=== PATIENT | female | born 1960 | race Caucasian/White ===

== ENCOUNTER 2020-11-29 06:38 | Day surgery (SDC) | payer BC, MEDICAID ==
[2020-11-22 12:00] LABS: ALBUMIN/GLOBULIN RATIO 1.1 (1.1-1.5); ALKALINE PHOSPHATASE 96 IU/L (46-116); BLOOD UREA NITROGEN 17 MG/DL (7-18); BUN/CREATININE RATIO 17.3 (6.6-38.0); CALCIUM 8.9 MG/DL (8.5-10.1); CHLORIDE 105 MMOL/L (99-107); CREATININE 0.98 MG/DL (0.40-0.90); PRE OP ALT 34 U/L (30-65); PRE OP ANION GAP 11 (8-16); PRE OP AST 29 U/L (10-37); PRE OP BILIRUB, TOTAL 0.5 MG/DL (0.0-1.0); PRE OP GLUCOSE 117 MG/DL (70-104); PRE OP SODIUM 145 MMOL/L (135-145); TOTAL CARBON DIOXIDE 28.9 MMOL/L (24-32); TOTAL PROTEIN 7.7 G/DL (6.4-8.2); eGFR 58 ML/MIN
[2020-11-22 12:02] LABS: BASOPHILS # (AUTO) 0.1 X10'3 (0-0.2); BASOPHILS % (AUTO) 0.8 % (0-1); EOSINOPHILS # (AUTO) 0.1 X10'3 (0-0.9); LYMPHOCYTES # (AUTO) 2.1 X10'3 (1.1-4.8); MEAN CORPUSCULAR HEMOGLOBIN 27.2 PG (27.0-31.0); MEAN CORPUSCULAR HGB CONC 32.6 g/dL (33.0-36.5); MEAN CORPUSCULAR VOLUME 83.5 FL (78-98); MEAN PLATELET VOLUME 7.5 FL (7.4-10.4); MONOCYTES # (AUTO) 0.7 X10'3 (0-0.9); MONOCYTES % (AUTO) 8.8 % (2-12); NEUTROPHILS # (AUTO) 4.9 X10'3 (1.8-7.7); NEUTROPHILS % (AUTO) 62.4 % (42-75); PRE OP HEMATOCRIT 43.8 % (35.0-45.0); PRE OP HEMOGLOBIN 14.3 g/dL (12.0-16.0); PRE OP PLATELET COUNT 425 X10'3 (140-440); RED BLOOD COUNT 5.24 X10'6 (4.20-5.60)
[~2020-11-29] VITALS: Ht 167.6 cm; Wt 76.5 kg
[~2020-11-29 06:38] MED LIST: HYDR50TA65 PO; OMEP20TA5 PO; cefazolin/dext.iso 2gm/100ml IV ONE; famotidine 20mg tablet PO ONE; ringers solution, lacted 1,000 ML IV SCH; vancomycin 1,500 MG in NS 300ml IV soln IV ONE
[2020-11-29 07:00] VITALS: BP 115/79
--- NOTE | 2020-11-29 07:00 | NUR ---
PT VERY ANXIOUS, DID NOT TOLERATE ATTEMPT AT 2ND IV FOR RIGHT HAND-CRYING, HOT FLASHES AT BEDSIDE TO COMFORT. WILL WAIT UNTIL IN OR TO ATTEMPT SL FOR BLOCK, 20G PIV IN LEFT HAND W/O PROBLEM. Addendum: 11/29/20 at 1126 by Charis Benton RN Amended: Links added.
[2020-11-29] MEDS ORDERED: ondansetron/PF 4mg/2ml inj IV PRN (07:35)
[2020-11-29] MEDS ORDERED: hydrALAZINE 20mg/ml inj. IV PRN (07:35)
[2020-11-29] MEDS ORDERED: morphine 4 MG/ML inj SYRINge IV PRN (07:35)
[2020-11-29] MEDS ORDERED: labetalol 20mg/4ml (5mg/ml) syringe IV PRN (07:35)
[2020-11-29] MEDS ORDERED: ringers solution, lacted 1,000 ML IV SCH (07:35)
[2020-11-29] MEDS ORDERED: proCHLORperazine 10 MG/2 ml inj IV PRN (07:35)
[2020-11-29] MEDS ORDERED: acetaminophen 1,000mg/100ml IV 100 ML IV PRN (07:35)
[2020-11-29] MEDS ORDERED: meperidine/PF 25mg/ml syringe IV PRN ×3 (07:35)
[2020-11-29] MEDS ORDERED: morphine 2 MG/ML inj. syringe IV PRN (07:35)
[2020-11-29] MEDS ORDERED: BUPIVAcaine/PF 2.5 mg/ml (0.25%) 30ml vial ONE (08:39)
[2020-11-29] MEDS ORDERED: methylPREDNISolone sod succ 125mg/2ml vial ONE (08:39)
[2020-11-29] MEDS ORDERED: fentaNYL/PF 50MCG/1 ML 2ML syringe ONE (09:03)
[2020-11-29] MEDS ORDERED: midazolam 1 mg/ML 2ml injection ONE (09:04)
[2020-11-29] MEDS ORDERED: propofol inj 20 ML IV ONE (09:15)
[2020-11-29] MEDS ORDERED: LIDOcaine 0.5% (5mg/ml) 50ml vial ONE (09:15)
[2020-11-29 10:07] VITALS: BP 102/64
--- NOTE | 2020-11-29 10:07 | NUR ---
Received from OR via [facility] IN STABLE CONDITION , accompanied by Anesthesiologist and REAL ESTATE TEACHER report given by Jared. Addendum: 11/29/20 at 1059 by Joselyn Mayers RN Amended: Links added.
[2020-11-29 10:20] VITALS: BP 98/69
[2020-11-29 10:30] VITALS: BP 97/67
--- NOTE | 2020-11-29 10:47 | NUR ---
PATIENT DISCHARGED FROM PACU IN STABLE CONDITION AFTER WRITTEN AND VERBAL DISCHARGE INSTUCTIONS GIVEN. PATIENT GAVE VERBAL UNDERSTANDING OF INSTRUCTIONS GIVEN. PATIENT LEFT FACILITY VIA WHEELCHAIR WITH RN. Addendum: 11/29/20 at 1100 by Joselyn Mayers RN Amended: Links added.
== END 2020-11-29 10:47 | disposition home or self-care (01) ==
LOC: PAS 06:38
PROVIDERS: ATTEND Orthopaedic Surgery
DX: G56.01 Carpal tunnel syndrome, right upper limb (principal); M65.4 Radial styloid tenosynovitis [de Quervain]; G56.21 Lesion of ulnar nerve, right upper limb; S66.211A Strain of extensor muscle, fascia and tendon of right thumb at wrist and hand level, initial encounter; F41.9 Anxiety disorder, unspecified; K21.9 Gastro-esophageal reflux disease without esophagitis; E78.5 Hyperlipidemia, unspecified; F43.10 Post-traumatic stress disorder, unspecified; F41.0 Panic disorder [episodic paroxysmal anxiety]; E66.8 Other obesity; Z68.27 Body mass index [BMI] 27.0-27.9, adult; Z20.822 Contact with and (suspected) exposure to COVID-19; Z79.899 Other long term (current) drug therapy; Z98.890 Other specified postprocedural states; Z98.51 Tubal ligation status; Z72.89 Other problems related to lifestyle; X58.XXXA Exposure to other specified factors, initial encounter; Y93.89 Activity, other specified; Y92.89 Other specified places as the place of occurrence of the external cause; Y99.8 Other external cause status
CPT/HCPCS: 25000; 26418; 36415; 64719; 64721; 80053; 82948; 85025; 93005; J2001; J2250; J2704; J2930; J3010; J3370; J3490; J7040; U0003; U0005; A4215; A4565; A4618; A6455; A7000; J7120